=== PATIENT | male | born 1965 | race Caucasian/White ===

== ENCOUNTER 2019-03-30 03:30 | Emergency (ER) | payer OTHER ==
[2019-03-30] MEDS ORDERED: cefTRIAXone 1 GM Vial IM ONE (04:25)
[2019-03-30 04:27] LABS: BLOOD UREA NITROGEN,BUN 19 mg/dL (7.0-18.0); CHLORIDE,CL 105 mmol/L (98-107); GLUCOSE RANDOM 96 mg/dL (74-106); POTASSIUM,K 4.1 mmol/L (3.5-5.1); SODIUM,NA 139 mmol/L (136-148)
[2019-03-30] MEDS ORDERED: cefTRIAXone 1 GM in Lidocaine 1% 4 ML IM ONE (04:27)
--- NOTE | 2019-03-30 04:30 | CR ---
INDICATION: wound on sole of left foot COMPARISON: None. FINDINGS: The AP views of the left foot demonstrate normal mineralization and alignment. There is no evidence of acute fracture dislocation. Prominent plantar calcaneal enthesophytes. Soft tissues are unremarkable. IMPRESSION: No acute osseous abnormality. Dictated by Kleber Marinelli MD @ 03/30/2019 4:28:01 AM Dictated by: Kleber Marinelli MD @ 03/30/2019 04:28:16 (Electronically Signed)
--- NOTE | 2019-03-30 04:30 | EDM.PDOC ---
ED HPI GENERAL MEDICAL PROBLEM - General Chief Complaint: Skin Complaint Stated Complaint: INFECTION ON LT LEG Time Seen by Provider: 03/30/19 04:30 - History of Present Illness INITIAL COMMENTS - FREE TEXT/NARRATIVE: HISTORY AND PHYSICAL: History of present illness: Patient 53-year-old white male presents with concern of a callus to the bottom of his left foot progressively worse over the last 4 days patient concern about infection there is no fever chills nausea vomiting and denies other concern. Review of systems: As per history of present illness and below otherwise all systems reviewed and negative. Past medical history: As per history of present illness and as reviewed below otherwise noncontributory. Surgical history: As per history of present illness and as reviewed below otherwise noncontributory. Social history: No reported history of drug or alcohol abuse. Family history: As per history of present illness and as reviewed below otherwise noncontributory. Physical exam: HEENT: Atraumatic, normocephalic, pupils reactive, negative for conjunctival pallor or scleral icterus, mucous membranes moist, throat clear, neck supple, nontender, trachea midline. Lungs: Clear to auscultation, breath sounds equal bilaterally, chest nontender. Heart: S1S2, regular, negative for clicks, rubs, or JVD. Abdomen: Soft, nondistended, nontender. Negative for masses or hepatosplenomegaly. Negative for costovertebral tenderness. Pelvis: Stable nontender. Genitourinary: Deferred. Rectal: Deferred. Extremities: Patient has a proximately 2 cm callus on the plantar surface of his left foot with some erythema and tenderness no fluctuance minimal induration Neuro: Awake, alert, oriented. Cranial nerves II through XII unremarkable. Cerebellum unremarkable. Motor and sensory unremarkable throughout. Exam nonfocal. Diagnostics: CBC CMP x-ray left foot Therapeutics: Rocephin 1 g IM Impression: #1 callus left foot with cellulitis Definitive disposition and diagnosis as appropriate pending reevaluation and review of above. left foot Pain Score (Numeric/FACES): 3 - Related Data Allergies Allergy/AdvReac Type Severity Reaction Status Date / Time No Known Allergies Allergy Verified 03/30/19 03:50 Home Meds: Home Meds Tamsulosin HCl 1 cap PO DAILY 03/30/19 [History] Past Medical History Genitourinary History: Reports: BPH - Past Surgical History HEENT Surgical History: Reports: Other (See Below) Other HEENT Surgeries/Procedures: ear reconstructive Social & Family History - Family History Family Medical History: Noncontributory - Tobacco Use Smoking Status *Q: Current Every Day Smoker Years of Tobacco use: 3 Packs/Tins Daily: 1 - Recreational Drug Use Recreational Drug Use: No ED ROS GENERAL - Review of Systems Review Of Systems: ROS reveals no pertinent complaints other than HPI. ED EXAM, SKIN/RASH Exam: See Below (See dictation) Course - Vital Signs Last Recorded V/S: Last Vital Signs Temp 36.2 C 03/30/19 03:35 Pulse 89 03/30/19 03:35 Resp 18 03/30/19 03:35 BP 138/89 03/30/19 03:35 Pulse Ox 95 03/30/19 03:35 - Orders/Labs/Meds Orders: Active Orders 24 hr Category Date Time Status Foot 2V Lt [CR] Stat Exams 03/30/19 03:50 Taken COMPREHENSIVE METABOLIC PN,CMP [CHEM] Stat Lab 03/30/19 04:00 Received CULTURE WOUND [RM] Stat Lab 03/30/19 03:40 Received cefTRIAXone [Rocephin] Med 03/30/19 04:25 Once 1 gm IM ONETIME ONE Medication Orders Ceftriaxone Sodium (Rocephin) 1 gm IM ONETIME ONE Stop: 03/30/19 04:26 Labs: Laboratory Tests 03/30/19 Range/Units 04:00 WBC 9.59 (4.0-11.0) K/uL RBC 4.49 L (4.50-5.90) M/uL Hgb 15.1 (13.0-17.0) g/dL Hct 42.9 (38.0-50.0) % MCV 95.5 (80.0-98.0) fL MCH 33.6 H (27.0-32.0) pg MCHC 35.2 (31.0-37.0) g/dL RDW Std Deviation 43.5 (28.0-62.0) fl RDW Coeff of Aguilar 13 (11.0-15.0) % Plt Count 164 (150-400) K/uL MPV 9.60 (7.40-12.00) fL Neut % (Auto) 63.2 (48.0-80.0) % Lymph % (Auto) 26.6 (16.0-40.0) % [place] % (Auto) 6.8 (0.0-15.0) % Eos % (Auto) 3.0 (0.0-7.0) % Baso % (Auto) 0.4 (0.0-1.5) % Neut # (Auto) 6.1 H (1.4-5.7) K/uL Lymph # (Auto) 2.6 H (0.6-2.4) K/uL [place] # (Auto) 0.7 (0.0-0.8) K/uL Eos # (Auto) 0.3 (0.0-0.7) K/uL Baso # (Auto) 0.0 (0.0-0.1) K/uL Nucleated RBC % 0.0 /100WBC Nucleated RBCs # 0 K/uL Meds: Medications Generic Name Dose Route Start Last Admin Trade Name Freq PRN Reason Stop Dose Admin Ceftriaxone Sodium 1 gm 03/30/19 04:25 Rocephin IM 03/30/19 04:26 ONETIME ONE Departure - Departure Time of Disposition: 04:29 Disposition: Home, Self-Care 01 Condition: Good Clinical Impression: Cellulitis - Discharge Information Referrals: PCP,None [Primary Care Provider] - Additional Instructions: The following information is given to patients seen in the emergency department who are being discharged to home. This information is to outline your options for follow-up care. We provide all patients seen in our emergency department with a follow-up referral. The need for follow-up, as well as the timing and circumstances, are variable depending upon the specifics of your emergency department visit. If you don't have a primary care physician on staff, we will provide you with a referral. We always advise you to contact your personal physician following an emergency department visit to inform them of the circumstance of the visit and for follow-up with them and/or the need for any referrals to a consulting specialist. The emergency department will also refer you to a specialist when appropriate. This referral assures that you have the opportunity for followup care with a specialist. All of these measure are taken in an effort to provide you with optimal care, which includes your followup. Under all circumstances we always encourage you to contact your private physician who remains a resource for coordinating your care. When calling for followup care, please make the office aware that this follow-up is from your recent emergency room visit. If for any reason you are refused follow-up, please contact the [facility] emergency department at and asked to speak to the emergency department charge nurse. Elmore Ciarra [facility] - Podiatry [address] [place] [id number] Fax: [phone] Follow-up primary medical doctor in podiatry 24-48 hours Keflex is prescribed crutches as directed and return as needed as discussed Motrin/Tylenol as directed - My Orders Last 24 Hours: My Active Orders 03/30/19 03:40 CULTURE WOUND [RM] Stat 03/30/19 03:50 Foot 2V Lt [CR] Stat 03/30/19 04:00 COMPREHENSIVE METABOLIC PN,CMP [CHEM] Stat 03/30/19 04:25 cefTRIAXone [Rocephin] 1 gm IM ONETIME ONE - Assessment/Plan Last 24 Hours: My Active Orders 03/30/19 03:40 CULTURE WOUND [RM] Stat 03/30/19 03:50 Foot 2V Lt [CR] Stat 03/30/19 04:00 COMPREHENSIVE METABOLIC PN,CMP [CHEM] Stat 03/30/19 04:25 cefTRIAXone [Rocephin] 1 gm IM ONETIME ONE
== END 2019-03-30 04:50 | disposition home or self-care (01) ==
LOC: MW.ED 03:30
DX: L03.116 Cellulitis of left lower limb (principal); L84 Corns and callosities; F17.210 Nicotine dependence, cigarettes, uncomplicated; Z79.899 Other long term (current) drug therapy
CPT/HCPCS: 36415; 73620; 80053; 85025; 87070; 87077; 87186; 96372; 99283; J0696; J2001